=== PATIENT | male | born 1995 | race Caucasian/White ===

== ENCOUNTER 2023-01-22 17:55 | Emergency (ER) | payer BC, OTHER ==
[~2023-01-22] VITALS: Ht 182.9 cm; Wt 90.7 kg
[2023-01-22 18:04] VITALS: BP_SYST 132; PULSE 82; RESP 20; TEMP 98.4; O2SAT 86
[2023-01-22] MEDS ORDERED: KETOROLAC TROMETHAMINE 30 MG VIAL IVP ONE (18:30)
[2023-01-22] MEDS ORDERED: NACL 0.9% 1,000 ML IV ONE (18:30)
[2023-01-22 19:38] VITALS: BP_SYST 132; PULSE 82; RESP 20; TEMP 98.4; O2SAT 86
== END 2023-01-22 19:38 | disposition home or self-care (01) ==
LOC: SED 17:55
DX: R51.9 Headache, unspecified (principal); R11.2 Nausea with vomiting, unspecified; R63.0 Anorexia; Z79.899 Other long term (current) drug therapy
CPT/HCPCS: 99283; 96374; 96361; J1885; J7030